=== PATIENT | female | born 1925 | race Caucasian/White ===

== ENCOUNTER 2016-12-06 09:35 | Outpatient (RCR) | payer MEDICARE ==
--- OUTSIDE RECORDS SUMMARY | 2016-09-13 10:44 | XMS REPORT | Continuity of Care Document ---
Author Author [facility] Organization [facility] Address Unknown Phone Unavailable Care Team Providers Care Costume Specialist Name Role Phone JANEEN ANDREA MD PCP Insurance Providers Payer Name Policy Number Subscriber Name Relationship Wps Medicare [id number] Allyson Nieto Self / Same As Patient [facility] [id number] Allyson Nieto Self / Same As Patient Advance Directives Directive Response Recorded Date/Time Advance Directives Yes 09/13/14 6:52pm Health Care Power of Director Systems Y DaughterJohn 09/13/14 6:52pm Organ Donor Yes 09/13/14 6:52pm Problems Active Problems Medical Problem Onset Date Status Anemia Unknown Acute Chest pain Unknown Acute GI bleed Unknown Acute Medications Current Home Medications Medication Dose Units Route Directions Days/Qty Instructions Start Date Isosorbide Mononitrate (Imdur) 30 Mg 30 Mg Oral Daily 09/14/10 Simvastatin 40 Mg 40 Mg Oral Bedtime 09/14/10 Ranitidine Hcl 150 Mg 150 Mg Oral Twice A Day as needed for Heartburn NEEDED FOR HEARTBURN 04/07/12 Metoprolol Tartrate (Lopressor) 25 Mg 25 Mg Oral Twice A Day Docusate Sodium 100 Mg 100 Mg Oral Daily as needed for Constipation 09/14/14 Past Home Medications Medication Directions Ordered Status Omeprazole 10 Mg Capsule., 12/26/09 Discontinued Guaifenesin 50 Mg Gran.pack, 12/26/09 Discontinued Ibuprofen 200 Mg Tab, 12/26/09 Discontinued [Rituxin] , 12/26/09 Discontinued Guaifenesin 600 Mg Tab, 12/26/09 Discontinued Omeprazole 40 Mg Capsule.dr, 12/26/09 Discontinued Clopidogrel Bisulfate 75 Mg Tablet, 1 Each Oral Daily 09/14/10 Discontinued Metoprolol Succinate 25 Mg Tab.sr.24h, 25 Mg Oral Twice A Day 09/14/10 Discontinued Aspirin 81 Mg Tabec, 81 Mg Oral Daily 09/14/10 Discontinued Loratadine 10 Mg Box, 1 Each Oral Daily 09/14/10 Discontinued Famotidine (Pepcid) 20 Mg Tablet, 1 Each Oral Daily 09/14/10 Discontinued Propoxyphene Hcl/Acetaminophen 1 Tab Tablet, 0 Oral Every 4HRS 09/18/10 Discontinued Vitamin C/Vitamin E 1 Tab Tab, 1 Tab Oral Daily 02/28/12 Discontinued Guaifenesin 600 Mg Tab, 600 Mg Oral As Needed 04/07/12 Discontinued Cetirizine Hcl 10 Mg Capsule, 10 Mg Oral 01/18/14 Discontinued Clopidogrel Bisulfate 75 Mg Tab, 75 Mg Oral Daily 02/03/14 Discontinued Metoprolol Tartrate 25 Mg Tablet, 0 Mg Oral Twice A Day 02/03/14 Discontinued Aspirin 81 Mg Tab.chew, 81 Mg Oral Daily @ 1200 03/09/14 Discontinued Cetirizine Hcl (Zyrtec) 10 Mg Tablet, 10 Mg Oral Daily as needed for Allergies 03/09/14 Discontinued Clopidogrel Bisulfate 75 Mg Tab, 75 Mg Oral Daily 03/09/14 Discontinued Social History Social History Problem Response Recorded Date/Time Alcohol Use Denies Use 09/13/2014 7:10pm Recreational Drug Use No 09/13/2014 7:10pm Recent Foreign Travel No 09/13/2014 7:10pm Recent Infectious Disease Exposure No 09/13/2014 7:10pm Hospitalization with Isolation Denies 09/13/2014 7:10pm Sexually Transmitted Disease No 09/13/2014 2:04pm Hospital Discharge Instructions Current inpatient/outpatient. Discharge instructions are currently unavailable. Plan of Care Prescriptions Functional Status Query Response Date Recorded Patient Orientation Person Place Time Situation April 05, 2016 9:05am Allergies, Adverse Reactions, Alerts No known allergies. Immunizations Name Given Type Date of Pneumonia Vaccine 09/13/11 Historical Date of Influenza Vaccine 09/09/14 Historical Hepatitis A No Historical Hepatitis B No Historical Tetanus Booster (TDap) More than 5yrs Historical Vital Signs Acute Vital Signs Vital Response Date/Time Pulse Rate (adult) 108 bpm (60 - 90) 04/05/2016 9:10am O2 Sat by Pulse Oximetry 98 % (88 - 100) 04/05/2016 9:08am Blood Pressure 144/72 mm Hg 04/05/2016 9:10am Blood Pressure Mean 96 mm Hg 04/05/2016 9:10am Height (Feet) 5 feet 04/05/2016 7:52am Height (Inches) 6.00 inches 04/05/2016 7:52am Height (Calculated Centimeters) 167.153055 cm 04/05/2016 7:52am Weight (Pounds) 143 pounds 04/05/2016 7:52am Weight (Ounces) 0.0 oz 04/05/2016 7:52am Weight (Calculated Grams) 50557.710 gm 04/05/2016 7:52am Weight (Calculated Kilograms) 64.661590 kilograms 04/05/2016 7:52am Calculated BMI 23.1 04/05/2016 7:52am Results Laboratory Results Test Name Result Units Flags Reference Collection Date/Time Result Date/ Time Comments White Blood Count 7.0 10^3/uL 4.3-11.0 02/02/2016 10:10am 02/02/2016 10 :27am Red Blood Count 4.52 10^6/uL 4.35-5.85 02/02/2016 10:10am 02/02/2016 10 :27am Hemoglobin 13.6 G/DL 11.5-16.0 02/02/2016 10:10am 02/02/2016 10:27am Hematocrit 41 % 35-52 02/02/2016 10:10am 02/02/2016 10:27am Mean Corpuscular Volume 91 FL 80-99 02/02/2016 10:10am 02/02/2016 10: 27am Mean Corpuscular Hemoglobin 30 PG 25-34 02/02/2016 10:10am 02/02/2016 10:27am Mean Corpuscular Hemoglobin Concent 33 G/DL 32-36 02/02/2016 10:10am 10:27am Red Cell Distribution Width 13.9 % 10.0-14.5 02/02/2016 10:2015 10:27am Platelet Count 176 10^3/uL 130-400 02/02/2016 10:02/02/2016 10: 27am Mean Platelet Volume 9.1 FL 7.4-10.4 02/02/2016 10:02/02/2016 10: 27am Neutrophils (%) (Auto) 50 % 42-75 02/02/2016 10:02/02/2016 10: 27am Lymphocytes (%) (Auto) 39 % 12-44 02/02/2016 10:02/02/2016 10: 27am Monocytes (%) (Auto) 7 % 0-12 02/02/2016 10:02/02/2016 10:27am Eosinophils (%) (Auto) 4 % 0-10 02/02/2016 10:02/02/2016 10:27am Basophils (%) (Auto) 1 % 0-10 02/02/2016 10:02/02/2016 10:27am Neutrophils # (Auto) 3.5 X 10^3 1.8-7.8 02/02/2016 10:02/02/2016 10:27am Lymphocytes # (Auto) 2.7 X 10^3 1.0-4.0 02/02/2016 10:02/02/2016 10:27am Monocytes # (Auto) 0.5 X 10^3 0.0-1.0 02/02/2016 10:02/02/2016 10: 27am Eosinophils # (Auto) 0.3 10^3/uL 0.0-0.3 02/02/2016 10:02/02/2016 10:27am Basophils # (Auto) 0.0 10^3/uL 0.0-0.1 02/02/2016 10:02/02/2016 10 :27am Sodium Level 140 MMOL/L 135-145 02/02/2016 10:02/02/2016 10:50am Potassium Level 4.1 MMOL/L 3.6-5.0 02/02/2016 10:10a02/02/2016 10: 50am Chloride Level 104 MMOL/L 98-107 02/02/2016 10:02/02/2016 10:50am Carbon Dioxide Level 26 MMOL/L 21-32 02/02/2016 10:10a02/02/2016 10: 50am Anion Gap 10 MMOL/L 5-14 02/02/2016 10:10a02/02/2016 10:50am Blood Urea Nitrogen 14 MG/DL 7-18 02/02/2016 10:10a02/02/2016 10: 50am Creatinine 0.94 MG/DL 0.60-1.30 02/02/2016 10:10a02/02/2016 10:50am BUN/Creatinine Ratio 15 02/02/2016 10:10a02/02/2016 10:50am Estimat Glomerular Filtration Rate 56 02/02/2016 10:10a2015 10:50am GFR INTERPRETIVE DATA UNITS FOR ESTIMATED GFR (eGFR): mL/min/1.73 M2 REFERENCE RANGE FOR ESTIMATED GFR (eGFR) eGFR NORMAL eGFR >60 MODERATELY DECREASED eGFR 30-59 SEVERLY DECREASED eGFR 15-29 KIDNEY FAILURE <15 (OR DIALYSIS) Glucose Level 82 MG/DL 70-105 02/02/2016 10:10a02/02/2016 10:50am Calcium Level 9.3 MG/DL 8.5-10.1 02/02/2016 10:10a02/02/2016 10:50am Total Bilirubin 0.6 MG/DL 0.1-1.0 02/02/2016 10:10a02/02/2016 10: 50am Alkaline Phosphatase 77 U/L 40-136 02/02/2016 10:10am 02/02/2016 10: 50am Aspartate Amino Transf (AST/SGOT) 20 U/L 5-34 02/02/2016 10:10a2015 10:50am Alanine Aminotransferase (ALT/SGPT) 15 U/L 0-55 02/02/2016 10:10a01/2016 10:50am Lactate Dehydrogenase 208 U/L 125-220 02/02/2016 10:10am 02/02/2016 10: 50am Total Protein 6.1 G/DL L 6.4-8.2 02/02/2016 10:10am 02/02/2016 10:50am Albumin 3.8 G/DL 3.2-4.5 02/02/2016 10:10am 02/02/2016 10:50am Ferritin 176 NG/ML H 15-150 02/02/2016 10:10am 02/03/2016 6:55am Test performed at [place] [address], [facility] [address] CLIA# [id number], Annabelle Anderson MD - Stopper Setter Procedures No known history of procedures. Encounters Encounter Location Arrival/Admit Date Discharge/Depart Date Attending Provider Registered Clinic [facility] 04/05/16 7:48am FORD BOLANOS Discharged Recurring [facility] 02/02/16 9:52am 11:59pm DON GAGE
[~2016-12-06 09:35] MED LIST: ASP81TEC PO; ASPI-906 PO; CETI10CA8 PO; CETI10TA17 PO; CLOP75TA PO; CLPD75T PO; DCS100C PO; FAMO20TA5 PO; GFN600TCR; GFN600TCR PO; GUAI50GR; IBP200T; ISOS30TA3 PO; LRT10T PO; METO25TA PO; METO25TA2 PO; NFAMINITAB PO; NFPRILOC40; OMEP10CA2; PROP1TAB77 PO; RITUXIN; RNT150T PO; SIMV40TA4 PO
== END 2016-12-12 | disposition home or self-care (01) ==
LOC: ONC 09:35
PROVIDERS: ATTEND Internal Medicine Hematology & Oncology
DX: C83.38 Diffuse large B-cell lymphoma, lymph nodes of multiple sites (principal); D64.9 Anemia, unspecified; I25.10 Atherosclerotic heart disease of native coronary artery without angina pectoris; N18.3 Chronic kidney disease, stage 3 (moderate); E78.5 Hyperlipidemia, unspecified; Z79.899 Other long term (current) drug therapy; Z45.2 Encounter for adjustment and management of vascular access device
CPT/HCPCS: 96523

== ENCOUNTER 2017-01-17 09:52 | Outpatient (RCR) | payer MEDICARE ==
--- OUTSIDE RECORDS SUMMARY | 2017-01-17 09:57 | XMS REPORT | Continuity of Care Document ---
Author Author [facility] Organization [facility] Address Unknown Phone Unavailable Care Team Providers Care Drafter Apprentice Name Role Phone JANEEN ANDREA MD PCP Insurance Providers Payer Name Policy Number Subscriber Name Relationship Wps Medicare [id number] Allyson Nieto Self / Same As Patient [facility] [id number] Allyson Nieto Self / Same As Patient Advance Directives Directive Response Recorded Date/Time Advance Directives Yes 09/13/14 6:52pm Health Care Power of Microsoft Windows Engineer Y DaughterJohn 09/13/14 6:52pm Organ Donor Yes [...] 6.00 inches 04/05/2016 7:52am Height (Calculated Centimeters) 167.409319 cm 04/05/2016 7:52am Weight (Pounds) 143 pounds 04/05/2016 7:52am Weight (Ounces) 0.0 oz 04/05/2016 7:52am Weight (Calculated Grams) 52362.710 gm 04/05/2016 7:52am Weight (Calculated Kilograms) 64.808729 kilograms 04/05/2016 7:52am Calculated BMI 23.1 04/05/2016 [...] 02/02/2016 10:10am 02/03/2016 6:55am Test performed at [place] [address], [facility] [address] CLIA# [id number], Annabelle Anderson MD - Rubber Moulding Machine Operator Procedures No known history of procedures. Encounters Encounter Location Arrival/Admit Date Discharge/Depart Date Attending Provider Registered Clinic [facility] 04/05/16 7:48am FORD BOLANOS Discharged Recurring [facility] 02/02/16 9:52am 11:59pm DON GAGE
[2017-01-17] MEDS ORDERED: ALTEPLASE 2 MG (CATHFLO) CANCER CENTER IV ONE (10:15)
[2017-01-17 10:19] LABS: BASOPHILS % (AUTO) 1 % (0-10); EOSINOPHILS # (AUTO) 0.6 10^3/uL (0.0-0.3); EOSINOPHILS % (AUTO) 9 % (0-10); LYMPHOCYTES % (AUTO) 30 % (12-44); MEAN CORPUSCULAR HEMOGLOBIN 29 PG (25-34); MEAN CORPUSCULAR HGB CONC 32 G/DL (32-36); MEAN CORPUSCULAR VOLUME 91 FL (80-99); MEAN PLATELET VOLUME 8.3 FL (7.4-10.4); MONOCYTES # (AUTO) 0.5 X 10^3 (0.0-1.0); MONOCYTES % (AUTO) 7 % (0-12); NEUTROPHILS # (AUTO) 3.6 X 10^3 (1.8-7.8); NEUTROPHILS % (AUTO) 54 % (42-75); PLATELET COUNT 228 10^3/uL (130-400); RED BLOOD COUNT 4.58 10^6/uL (4.35-5.85); RED CELL DISTRIBUTION WIDTH 14.1 % (10.0-14.5); WHITE BLOOD COUNT 6.7 10^3/uL (4.3-11.0)
[2017-01-17 10:54] LABS: ALANINE AMINOTRANSFERASE 12 U/L (0-55); ALBUMIN 3.8 G/DL (3.2-4.5); ANION GAP 9 MMOL/L (5-14); ASPARTATE AMINO TRANSFERASE 21 U/L (5-34); BILIRUBIN,TOTAL 0.6 MG/DL (0.1-1.0); BLOOD UREA NITROGEN 14 MG/DL (7-18); BUN/CREATININE RATIO 17; CALCIUM 9.1 MG/DL (8.5-10.1); CARBON DIOXIDE 25 MMOL/L (21-32); CHLORIDE 105 MMOL/L (98-107); CREATININE SERUM 0.84 MG/DL (0.60-1.30); GFR ESTIMATED > 60; GLUCOSE 108 MG/DL (70-105); LACTATE DEHYDROGENASE 200 U/L (125-220); SODIUM 139 MMOL/L (135-145)
[2017-01-24] MEDS ORDERED: VIT1CAPS9 PO (09:26)
[2017-01-24] MEDS ORDERED: OMEP20CA12 PO (09:26)
[2017-01-24] MEDS ORDERED: ASPI-586 PO (09:26)
[2017-01-25] MEDS ORDERED: TRAM50TA2 PO (11:25)
== END 2017-04-17 | disposition home or self-care (01) ==
LOC: ONC 09:52
PROVIDERS: ATTEND Internal Medicine Hematology & Oncology
DX: C83.38 Diffuse large B-cell lymphoma, lymph nodes of multiple sites (principal); D64.9 Anemia, unspecified; I25.10 Atherosclerotic heart disease of native coronary artery without angina pectoris; N18.3 Chronic kidney disease, stage 3 (moderate); E78.5 Hyperlipidemia, unspecified; Z79.899 Other long term (current) drug therapy; Z45.2 Encounter for adjustment and management of vascular access device
CPT/HCPCS: 36415; 36593; 80053; 82728; 83615; 85025; 99213

== ENCOUNTER 2017-01-24 09:00 | Outpatient (CLI) | payer MEDICARE ==
--- OUTSIDE RECORDS SUMMARY | 2017-01-23 05:44 | XMS REPORT | Continuity of Care Document ---
Author Author [facility] Organization [facility] Address Unknown Phone Unavailable Care Team Providers Care Wheel Adjuster Name Role Phone JANEEN ANDREA MD PCP Insurance Providers Payer Name Policy Number Subscriber Name Relationship Wps Medicare [id number] Allyson Nieto Self / Same As Patient [facility] [id number] Allyson Nieto Self / Same As Patient Advance Directives Directive Response Recorded Date/Time Advance Directives Yes 09/13/14 6:52pm Health Care Power of Architect Internship Y DaughterJohn 09/13/14 6:52pm Organ Donor Yes [...] 6.00 inches 04/05/2016 7:52am Height (Calculated Centimeters) 167.129924 cm 04/05/2016 7:52am Weight (Pounds) 143 pounds 04/05/2016 7:52am Weight (Ounces) 0.0 oz 04/05/2016 7:52am Weight (Calculated Grams) 21382.710 gm 04/05/2016 7:52am Weight (Calculated Kilograms) 64.387875 kilograms 04/05/2016 7:52am Calculated BMI 23.1 04/05/2016 [...] 02/02/2016 10:10am 02/03/2016 6:55am Test performed at [place] [address], [facility] [address] CLIA# [id number], Annabelle Anderson MD - Crop And Soil Technician Procedures No known history of procedures. Encounters Encounter Location Arrival/Admit Date Discharge/Depart Date Attending Provider Registered Clinic [facility] 04/05/16 7:48am FORD BOLANOS Discharged Recurring [facility] 02/02/16 9:52am 11:59pm DON GAGE
[~2017-01-24] VITALS: Ht 167.6 cm; Wt 61.2 kg
[2017-01-24] MEDS ORDERED: ASPI-586 PO (09:26)
[2017-01-24] MEDS ORDERED: VIT1CAPS9 PO (09:26)
[2017-01-24] MEDS ORDERED: OMEP20CA12 PO (09:26)
--- OUTSIDE RECORDS SUMMARY | 2017-01-24 09:32 | XMS REPORT | Continuity of Care Document ---
Author Author [facility] Organization [facility] Address Unknown Phone Unavailable Care Team Providers Care Sour Bleaching Pleater Name Role Phone JANEEN ANDREA MD PCP Insurance Providers Payer Name Policy Number Subscriber Name Relationship Wps Medicare [id number] Allyson Nieto Self / Same As Patient [facility] [id number] Allyson Nieto Self / Same As Patient Advance Directives Directive Response Recorded Date/Time Advance Directives Yes 09/13/14 6:52pm Health Care Power of Batch Mixer Operator Y DaughterJohn 09/13/14 6:52pm Organ Donor Yes [...] 6.00 inches 04/05/2016 7:52am Height (Calculated Centimeters) 167.106574 cm 04/05/2016 7:52am Weight (Pounds) 143 pounds 04/05/2016 7:52am Weight (Ounces) 0.0 oz 04/05/2016 7:52am Weight (Calculated Grams) 44020.710 gm 04/05/2016 7:52am Weight (Calculated Kilograms) 64.293996 kilograms 04/05/2016 7:52am Calculated BMI 23.1 04/05/2016 [...] 02/02/2016 10:10am 02/03/2016 6:55am Test performed at [place] [address], [facility] [address] CLIA# [id number], Annabelle Anderson MD - Mule Rider Procedures No known history of procedures. Encounters Encounter Location Arrival/Admit Date Discharge/Depart Date Attending Provider Registered Clinic [facility] 04/05/16 7:48am FORD BOLANOS Discharged Recurring [facility] 02/02/16 9:52am 11:59pm DON GAGE
[2017-01-25] MEDS ORDERED: TRAM50TA2 PO (11:25)
== END 2017-01-24 09:31 ==
LOC: PREOP 09:00
PROVIDERS: ATTEND Surgery
DX: Z01.818 Encounter for other preprocedural examination (principal); T82.9XXA Unspecified complication of cardiac and vascular prosthetic device, implant and graft, initial encounter; C85.90 Non-Hodgkin lymphoma, unspecified, unspecified site

== ENCOUNTER 2017-01-25 09:14 | Day surgery (SDC) | payer MEDICARE ==
[~2017-01-25] VITALS: Ht 167.6 cm; Wt 61.2 kg
[~2017-01-25 09:14] MED LIST changes: +ASPI-586 PO; +OMEP20CA12 PO; +VIT1CAPS9 PO
--- OUTSIDE RECORDS SUMMARY | 2017-01-25 09:23 | XMS REPORT | Continuity of Care Document ---
Author Author [facility] Organization [facility] Address Unknown Phone Unavailable Care Team Providers Care Physical Therapist Assistant Name Role Phone JANEEN ANDREA MD PCP Insurance Providers Payer Name Policy Number Subscriber Name Relationship Wps Medicare [id number] Allyson Nieto Self / Same As Patient [facility] [id number] Allyson Nieto Self / Same As Patient Advance Directives Directive Response Recorded Date/Time Advance Directives Yes 09/13/14 6:52pm Health Care Power of Mine Motor Operator Y DaughterJohn 09/13/14 6:52pm Organ Donor [...] 6.00 inches 04/05/2016 7:52am Height (Calculated Centimeters) 167.349772 cm 04/05/2016 7:52am Weight (Pounds) 143 pounds 04/05/2016 7:52am Weight (Ounces) 0.0 oz 04/05/2016 7:52am Weight (Calculated Grams) 49697.710 gm 04/05/2016 7:52am Weight (Calculated Kilograms) 64.014246 kilograms 04/05/2016 7:52am Calculated BMI 23.1 04/05/2016 [...] 02/02/2016 10:10am 02/03/2016 6:55am Test performed at [place] [address], [facility] [address] CLIA# [id number], Annabelle Anderson MD - User Support Analyst Supervisor Procedures No known history of procedures. Encounters Encounter Location Arrival/Admit Date Discharge/Depart Date Attending Provider Registered Clinic [facility] 04/05/16 7:48am FORD BOLANOS Discharged Recurring [facility] 02/02/16 9:52am 11:59pm DON GAGE
--- NOTE | 2017-01-25 09:28 | Progress Note-Pre Operative ---
Pre-Operative Progress Note H&P Reviewed The H&P was reviewed, patient examined and no changes noted. Date H&P Reviewed: Jan 25, 2017 Time H&P Reviewed: 09:27 Pre-Operative Diagnosis: nonfunctioning [id number] MERISSA ARRIETA MD Jan 25, 2017 9:28 am
[2017-01-25] MEDS ORDERED: ceFAZolin 1,000 MG (ANCEF) VIAL ONE (09:40)
[2017-01-25] MEDS ORDERED: NS (IVPB) 50 ML ONE (09:40)
[2017-01-25 09:51] VITALS: BP 150/82
[2017-01-25] MEDS ORDERED: ceFAZolin 1 GM/NS 50 ML IVPB IV ONE ×2 (10:15)
[2017-01-25] MEDS ORDERED: BUP/EPI 0.25% 1:200,000 (MARCAINE) 30 ML VIAL ONE (10:18)
[2017-01-25] MEDS ORDERED: proPOfol 200 MG/20 ML (DIPRIVAN) VIAL IV ONE (10:44)
--- NOTE | 2017-01-25 11:24 | Progress Note-Post Operative ---
Post-Operative Progess Note Pre-Operative Diagnosis nonfunctioning [id number] Post-Operative Diagnosis Same Post-Op Procedure Note Date of Procedure: Jan 25, 2017 Name of Procedure: Removal of port Anesthesia Type Sedation MERISSA ARRIETA MD Jan 25, 2017 11:24 am
[2017-01-25] MEDS ORDERED: LACTATED RINGERS 1,000 ML IV ONE (11:25)
[2017-01-25] MEDS ORDERED: TRAM50TA2 PO (11:25)
--- NOTE | 2017-01-25 11:26 | Discharge Inst-Simple/Standard ---
Discharge Inst-Standard Discharge Medications New, Converted or Re-Newed RX: RX on Chart Patient Instructions/Follow Up Plan of Care/Instructions/FU: Dressing off in 48 hours Activity as Tolerated: Yes Discharge Diet: No Restrictions MERISSA ARRIETA MD Jan 25, 2017 11:26 am
[2017-01-25 12:00] VITALS: BP 153/72
[2017-01-25 12:30] VITALS: BP 161/88
[2017-01-25 12:35] VITALS: BP 161/88
[2017-01-25] MEDS ORDERED: LACTATED RINGERS 1,000 ML IV SCH (14:00)
--- NOTE | 2017-01-27 13:13 | OPERATIVE REPORT ---
PROCEDURE PHYSICIAN: MERISSA ARRIETA DATE OF PROCEDURE: 01/25/2017 PREOPERATIVE DIAGNOSIS: 1. Lymphoma. 2. Nonfunctioning port. POSTOPERATIVE DIAGNOSIS: 1. Lymphoma. 2. Nonfunctioning port. PROCEDURE: Removal of port. SURGEON: Ted. ANESTHESIA: Sedation with local. BLOOD LOSS: Minimal. FLUIDS: 200 mL of crystalloids. TYPE OF WOUND: Type I (clean wound). 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 Therefore it was felt reasonable to remove it after having an adequate discussion with her oncologist. Informed consent was obtained after reviewing the procedure in detail. DESCRIPTION OF PROCEDURE: She was placed supine on the operating table and our anesthesiologist administered sedation, monitoring her vital signs. Left infraclavicular area was prepared and draped in the usual sterile manner. A gram of Ancef was administered intravenously as prophylaxis against wound infection. After establishing local anesthesia with 0.25% Marcaine with epinephrine, a second Incision was made along the previous scar and the existing Groshong catheter removed without risking air embolism. The pocket was irrigated with saline and the incision closed using 3-0 Vicryl for the dermal layer and 4-0 Vicryl for skin in a subcuticular fashion. She tolerated the procedure well and was taken back to the nursing area in a stable condition. Job ID: [id number] Dictated Date: 01/25/2017 11:22:59 Horse Racing Analyst Date: 01/27/2017 13:08:32 / elpidio
== END 2017-01-25 12:35 | disposition home or self-care (01) ==
LOC: SDC 09:14
PROVIDERS: ATTEND Surgery
DX: T82.9XXA Unspecified complication of cardiac and vascular prosthetic device, implant and graft, initial encounter (principal); C85.90 Non-Hodgkin lymphoma, unspecified, unspecified site
CPT/HCPCS: 87081